=== PATIENT | male | born 1955 | race Caucasian/White ===

== ENCOUNTER 2020-10-24 06:04 | Day surgery (SDC) | payer OTHER, SELFPAY ==
[~2020-10-24] VITALS: Ht 175.3 cm; Wt 95.3 kg
[2020-10-24] MEDS ORDERED: CLINDAMYCIN 600 MG in DEXTROSE 5% 50 ML IV SCH (07:30)
== END 2020-10-24 08:20 | disposition home or self-care (01) ==
LOC: MDS 06:04 → MMU 06:12 → MDS 08:20
PROVIDERS: ATTEND Surgery
DX: K80.00 Calculus of gallbladder with acute cholecystitis without obstruction (principal); E11.9 Type 2 diabetes mellitus without complications; E78.5 Hyperlipidemia, unspecified; I10 Essential (primary) hypertension; Z88.0 Allergy status to penicillin; Z98.890 Other specified postprocedural states; Z79.899 Other long term (current) drug therapy; Z20.828 Contact with and (suspected) exposure to other viral communicable diseases; Z53.8 Procedure and treatment not carried out for other reasons
CPT/HCPCS: 36415; 71046; 86886; 86900; 86901; U0003; J3490; J7060